=== PATIENT | male | born 1995 | race Caucasian/White ===

== ENCOUNTER 2019-12-15 22:05 | Emergency (ER) | payer OTHER, SELFPAY ==
--- NOTE | ~2019-12-15 | XR_ITS ---
XR chest 2V DATE: 12/15/2019 22:51 INDICATION: Shortness of breath. Dyspnea. Tachycardia. Chest discomfort. TECHNIQUE: PA and lateral views COMPARISON: 02/17/2011 PA chest FINDINGS: Normal heart size. No hilar or mediastinal enlargement. No pulmonary infiltrate or consolid ation, pleural effusion or pulmonary vascular congestion or pneumothorax. IMPRESSION: No active cardiac pulmonary disease Reviewed, dictated and finalized at location A.
--- NOTE | ~2019-12-15 | CT_ITS ---
EXAMINATION: CTA chest PE protocol DATE: 12/15/2019 23:55 INDICATION: Shortness of breath for 3 days. Tachycardia. TECHNIQUE: Computed tomography angiography (CTA) of the chest was performed with 100 mL Omnipaque-350 intravenous contrast timed to evaluate the pulmonary arteries. Coronal maximum intensity projection 3D-reconstructions were created by the technologist. Automated exposure control and iterative reconst ruction technique were employed. Exam dose: 450.67 mGy-cm total exam DLP. COMPARISON: None. FINDINGS: There is suboptimal contrast opacification of the pulmonary arteries. No definite pulmonary embolus is noted. No thoracic aortic aneurysm or dissection. No hilar or mediastinal mass lesion or lymphadenopathy. Normal heart size. No pericardial or pleural effusion. The lungs are clear of infiltrate or consolida tion. IMPRESSION: Suboptimal contrast opacification of the pulmonary arteries; no definite pulmonary embol ism or other significant abnormality Reviewed, dictated and finalized at [facility]. Reviewed, dictated and finalized at location A. IMPRESSION: Suboptimal contrast opacification of the pulmonary arteries; no de finite pulmonary embolism or other significant abnormality
[2019-12-15 22:06] VITALS: BP 131/87; PULSE 126; RESP 18; TEMP 37.6; O2SAT 100
--- NOTE | 2019-12-15 22:17 | ED.SOB ---
HPI - SOB/Dyspnea General Chief Complaint: Shortness of Breath/Dyspnea Stated Complaint: sob x3 days Time Seen by Provider: 12/15/19 22:14 Source: patient and RN notes reviewed Mode of arrival: ambulatory Limitations: no limitations History of Present Illness HPI Narrative: A 24 y/o male presents to the ED with constant SOB for the past 3 days. He states that he feels like he can't take a deep breath or fill his lungs. He reports that he has a dry cough for a couple weeks but that it resolved roughly1 week ago. He notes he there has been a lot of people at his working being dx with the flu lately. He denies any fevers, chills, sore throat, rhinorrhea, nasal congestion, leg pain, leg swelling, N/V/D, or ABD pain. MD elicited complaint: shortness of breath Onset (ago): day(s) (3) Timing: constant Associated symptoms: cough (dry cough for a couple weeks that resolved roughly 1 week ago) Treatment prior to arrival: none Related Data Home Medications Medication Instructions Recorded Confirmed No Home Medications 12/15/19 12/15/19 Allergies Allergy/AdvReac Type Severity Reaction Status Date / Time No Known Allergies Allergy Mild Verified 12/15/19 22:10 Review of Systems Review of Systems: All systems reviewed & are unremarkable except as noted in HPI and below Constitutional: Constitutional: Denies chills and Denies fever(s) ENT: Denies nasal congestion, Denies nasal discharge and Denies sore throat Cardiovascular: Cardiovascular: Denies leg edema Respiratory: Respiratory: Reports cough (dry cough for a couple week but resolved 1 week ago) and Reports dyspnea Gastrointestinal: Gastrointestinal: Denies abdominal pain, Denies diarrhea, Denies nausea and Denies vomiting Musculoskeletal: Musculoskeletal: Denies other (leg pain) PMFSH Past Medical History Medical History (Updated 12/16/19 @ 01:30 by Vale Rae MD) Healthy adult male Surgical History Surgical History (Updated 12/15/19 @ 23:21 by Charles Ramey) No history of previous surgery Social History Social History (Updated 12/15/19 @ 23:21 by Charles Ramey) Smoking status: Never smoker Exam Const: General: cooperative, no acute distress and alert Nutritional Appearance: well nourished Orientation/consciousness: patient oriented x3 Limitations: no limitations HENMT: Mouth: Yes lip normal and Yes moist mucous membranes Resp: Effort & Inspection: normal respiratory effort Auscultation: clear to auscultation bilaterally Cardio: Rate: tachycardic Rhythm: regular rhythm GI: GI Palp: Yes Soft to palpation and No Tenderness to palpation present (GI) Auscultation: normal bowel sounds Skin: General skin exam: normal color Neuro: General: patient oriented x3 Cognition (Neuro): normal cognition Speech: normal speech Extrem: General: normal to inspection, full ROM and no clubbing, cyanosis or edema Psych: Mental Status: mental status grossly normal Affect: normal affect Attitude: cooperative Course Course Emergency Course: Patient presents with report of shortness of breath. Patient notably tachycardic. Chest x-ray unremarkable, thus sent down for CT scan for further evaluation. Patient became very anxious while down in CT scan. CT scan is limited, but no gross evidence of pulmonary embolism. On reevaluation, patient noted to be anxious again very concerned about his test results. Reassured patient that his test results showed no overt abnormalities. Patient reports being under significant amount of stress currently. Discussed with patient his symptoms appear to be due to stress and anxiety, given his appearance on reevaluation. Patient heart rate intermittently excels when he becomes more anxious and becomes more normal when he relaxes. Will refer to on-call primary care physician for further care. Vital Signs Vital signs: Vital Signs Temperature 99.6 F 12/15/19 22:06 Pulse Rate 126 H 12/15/19 22:06 Respiratory Rate 18
[2019-12-15 23:31] VITALS: BP 139/69; PULSE 115; RESP 20; O2SAT 98
[2019-12-15] MEDS: LACTATED RINGERS 1,000 ML 999 ML IV CONT (23:31)
[2019-12-15 23:34] LABS: Basophils Percent Auto 0.5 % (0.2-1.2); Eosinophils Absolute Auto 0.1 K/mm3 (0-0.3); Eosinophils Percent Auto 1.2 % (0-4.4); Hematocrit 42.5 % (42.0-52.0); Hemoglobin 14.8 g/dL (14.0-18.0); Immature Granulocyte Absolute 0.01 K/mm3 (0.00-0.031); Immature Granulocyte Percent A 0.2 % (0-0.5); Lymphocytes Absolute Auto 1.47 K/mm3 (0.9-3.2); Lymphocytes Percent Auto 22.1 % (18.3-44.2); Mean Corpuscular HGB Conc 34.8 g/dl (32-36); Mean Corpuscular Hemoglobin 30.7 pg (26-34); Mean Corpuscular Volume 88.2 fl (80-100); Mean Platelet Volume 10.3 fl (7.4-10.4); Monocytes Absolute Auto 0.8 K/mm3 (0.1-0.6); Monocytes Percent Auto 12.2 % (2.6-8.5); Neutrophils Absolute Auto 4.3 K/mm3 (1.3-6.7); Neutrophils Percent Auto 63.8 % (45.5-73.1); Platelet Count Result 282 k/mm3 (150-375); Red Blood Count 4.82 M/mm3 (4.6-6.20); Red Cell Distribution Width 11.4 % (11.5-14.5); White Blood Count 6.7 K/mm3 (4.5-10.0)
--- NOTE | 2019-12-15 23:38 | ECG_ITS ---
Measurements Intervals [place] Rate: 130 P: 56 [place]: 141 QRS: 61 QRSD: 83 T: 31 QT: 333 QTc: 490 Interpretive Statements SINUS TACHYCARDIA BORDERLINE ST-T WAVE ABNORMALITY- ANTEROLAT/INF LEADS BASELINE ARTIFACT- I, II, III, AVR, AVL ABNORMAL ECG Electronically Signed On 12-16-2019 7:13:54 CDT by Jimmy Hopkins D.O.
[2019-12-15 23:41] LABS: Add Urine Microscopic? YES; Amorphous Sediment Urine Few; Appearance Urine Cloudy (Clear); Bacteria Urine Trace /hpf; Bilirubin Urine Negative (Negative); Blood Urine Negative (Negative); Color Urine Yellow (Yellow); Glucose Urine UA Negative (Negative); Ketones Urine Negative (Negative); Leukocyte Esterase Ur Negative LEU/UL (Negative); Mucus Urine Rare /lpf; Nitrate Urine Negative (Negative); Protein Urine 1+ mg/dL (Negative); RBC Urine 0-2 /hpf (0-2); Specific Grav Ur 1.024 (1.001-1.035); Squamous Epithelial Cell Urine Rare /hpf (Few)
[2019-12-15 23:48] LABS: Lactic Acid Reflex 1.3 mmol/L (0.7-2.1)
[2019-12-15 23:49] LABS: Alanine Aminotransferase 23 U/L (4-50); Albumin Level 4.6 g/dL (3.5-5.1); Alkaline Phosphatase 73 U/L (38-126); Aspartate Amino Transferase 24 U/L (17-59); Bilirubin,Total 0.3 mg/dL (0.2-1.3); Blood Urea Nitrogen 13 mg/dL (9-20); CRP < 0.5 mg/dL (<1.0); Calcium 9.2 mg/dL (8.4-10.2); Carbon Dioxide 29 mmol/L (22-30); Chloride 103 mmol/L (98-107); Estimated CRCL calculation 108 ml/min; Estimated Glomerular Filt Rate > 60; Glucose 87 mg/dL (75-110); Potassium 3.6 mmol/L (3.4-5.0); Sodium 140 mmol/L (137-145)
[2019-12-15 23:49] LABS: Estimated CRCL calculation 99 ml/min; Estimated Glomerular Filt Rate > 60
[2019-12-15 23:54] LABS: Partial Thromboplastin Time 26.4 SECONDS (22.3-36.8); Prothrombin Time 12.4 Seconds (11.1-14.7)
[2019-12-15 23:59] LABS: Magnesium 1.9 mg/dL (1.6-2.3)
[2019-12-16 00:15] VITALS: BP 126/91; PULSE 114; RESP 20; O2SAT 100
[2019-12-16 00:54] VITALS: BP 119/77; PULSE 109; RESP 20; O2SAT 100
[2019-12-16] MEDS: LACTATED RINGERS 1,000 ML 999 ML IV CONT (00:54)
[2019-12-16 01:38] VITALS: BP 119/77; PULSE 98; RESP 20; O2SAT 99
== END 2019-12-16 01:41 | disposition home or self-care (01) ==
PROVIDERS: Emergency Provider Emergency Medicine
DX: F41.9 Anxiety disorder, unspecified (principal); R06.00 Dyspnea, unspecified; R00.0 Tachycardia, unspecified; R94.31 Abnormal electrocardiogram [ECG] [EKG]
CPT/HCPCS: 36415; 71046; 71275; 80053; 81001; 83605; 83735; 84443; 85025; 85610; 85730; 86140; 87040; 87804; 93005; 96360; 96361; 99284; J7120; Q9967

== ENCOUNTER 2020-01-09 10:06 | Outpatient (CLI) | payer OTHER, SELFPAY ==
--- NOTE | ~2020-01-09 | XR_ITS ---
EXAMINATION: XR chest 2V EXAM DATE: 01/09/2020 10:21 INDICATION: Shortness of breath and cough. TECHNIQUE: Frontal and lateral projections of the chest obtained and reviewed. Comparison is made to prior examination from 12/15/2019. FINDINGS: The lungs are clear. There are no pleural effusions. The cardiomediastinal silhouette is within normal limits. There is no pneumothorax suspected. The bones and soft tissues are unremarkab le. IMPRESSION: No acute cardiopulmonary findings. Reviewed, dictated and finalized at location B.
== END 2020-01-09 10:07 | disposition home or self-care (01) ==
LOC: ANHIMG 10:10
PROVIDERS: PCP Family Medicine; Visit Provider Family Medicine
DX: R06.00 Dyspnea, unspecified (principal)
CPT/HCPCS: 71046

== ENCOUNTER 2020-02-06 12:36 | Emergency (ER) | payer OTHER, SELFPAY ==
--- NOTE | ~2020-02-06 | XR_ITS ---
EXAMINATION: XR chest 2V DATE: 02/06/2020 13:03 INDICATION: Midline to left-sided chest pain. TECHNIQUE: PA and lateral views of the chest were obtained. COMPARISON: Chest radiograph dated 01/09/2020 FINDINGS: The lungs remain clear with no focal airspace opacities, pulmonary edema, pleural effusion or pneumot horax. The cardiomediastinal silhouette is normal. Visualized bones and soft tissues are unremarkable . IMPRESSION: 1. Normal chest radiograph. Reviewed, dictated and finalized at location A. IMPRESSION: 1. Normal chest radiograph.
[2020-02-06 12:41] VITALS: BP 128/84; PULSE 138; RESP 17; TEMP 36.6; O2SAT 94
--- NOTE | 2020-02-06 12:54 | ECG_ITS ---
Measurements Intervals [place] Rate: 134 P: 62 [place]: 116 QRS: 68 QRSD: 89 T: -5 QT: 271 QTc: 405 Interpretive Statements SINUS TACHYCARDIA WITH SHORT [place] INTERVAL BORDERLINE R WAVE PROGRESSION, ANTERIOR LEADS NONSPECIFIC ST & T-WAVE ABNORMALITY- INF/LAT LEADS ABNORMAL ECG Electronically Signed On 02-06-2020 12:56:03 CDT by Jimmy Hopkins D.O.
[2020-02-06 13:03] LABS: Basophils Percent Auto 0.4 % (0.2-1.2); Eosinophils Absolute Auto 0.1 K/mm3 (0-0.3); Eosinophils Percent Auto 1.2 % (0-4.4); Hemoglobin 15.6 g/dL (14.0-18.0); Immature Granulocyte Absolute 0.01 K/mm3 (0.00-0.031); Immature Granulocyte Percent A 0.2 % (0-0.5); Lymphocytes Absolute Auto 1.22 K/mm3 (0.9-3.2); Lymphocytes Percent Auto 24.6 % (18.3-44.2); Mean Corpuscular HGB Conc 35.5 g/dl (32-36); Mean Corpuscular Hemoglobin 30.8 pg (26-34); Mean Corpuscular Volume 86.8 fl (80-100); Mean Platelet Volume 9.9 fl (7.4-10.4); Monocytes Absolute Auto 0.6 K/mm3 (0.1-0.6); Monocytes Percent Auto 12.1 % (2.6-8.5); Neutrophils Absolute Auto 3.1 K/mm3 (1.3-6.7); Neutrophils Percent Auto 61.5 % (45.5-73.1); Platelet Count Result 281 k/mm3 (150-375); Red Blood Count 5.07 M/mm3 (4.6-6.20); Red Cell Distribution Width 11.8 % (11.5-14.5)
[2020-02-06 13:13] LABS: Prothrombin Time 13.3 Seconds (11.1-14.7)
[2020-02-06 13:14] LABS: Partial Thromboplastin Time 25.8 SECONDS (22.3-36.8)
--- NOTE | 2020-02-06 13:26 | ED.CHESTPAIN ---
HPI - Chest Pain General Chief Complaint: Chest Pain Stated Complaint: gnarly heart pains Time Seen by Provider: 02/06/20 13:16 History of Present Illness HPI narrative: Sharp substernal chest pain for the past 3 days. Continuos. No exacerbating or alleviating factors. He has never had this type of pain before. Related Data Allergies Allergy/AdvReac Type Severity Reaction Status Date / Time No Known Allergies Allergy Mild Verified 02/06/20 12:55 Review of Systems Review of Systems: All systems reviewed & are unremarkable except as noted in HPI and below PMFSH Past Medical History Medical History Healthy adult male Surgical History Surgical History No history of previous surgery Family History Family History Mother Diabetes mellitus Social History Social History Smoking status: Never smoker Gender identity (if verbalized by the patient): Male Exam Const: General: healthy appearing, no acute distress and alert Orientation/consciousness: patient oriented x3 HENMT: Head: normal to inspection Neck: Neck: normal visual inspection and no lymphadenopathy Chest: Chest palpation & inspection: no tenderness Resp: Effort & Inspection: normal respiratory effort Auscultation: clear to auscultation bilaterally, no rales, no rhonchi and no wheezes Cardio: Jugular venous distension: no JVD Rate: regular rate Rhythm: regular rhythm Heart sounds: no murmurs GI: Inspection: non-distended GI Palp: Yes Soft to palpation and No Tenderness to palpation present (GI) Skin: General skin exam: normal color Neuro: General: patient oriented x3 and moves all extremities Speech: normal speech Extrem: General: no edema Psych: Appearance: well kempt Mental Status: mental status grossly normal Affect: Anxious affect present Attitude: cooperative Course Vital Signs Vital signs: Vital Signs Temperature 36.6 C 02/06/20 12:41 Pulse Rate 138 H 02/06/20 12:41 Respiratory Rate 17 02/06/20 12:41 Blood Pressure 128/84 02/06/20 12:41 Pulse Oximetry 94 02/06/20 12:41 Temperature 36.7 C 02/06/20 16:48 Pulse Rate 104 H 02/06/20 16:48 Respiratory Rate 20 02/06/20 16:48 Blood Pressure 121/83 02/06/20 16:48 Pulse Oximetry 98 02/06/20 16:48 MDM - Chest Pain MDM Narrative Medical decision making narrative: Low risk for serious causes of chest pain. Evaluation unremarkable. Appropriate for discharge at this time. Medical Records Data Attestation: I reviewed the patient's medical records. Lab Data Attestation: I reviewed the patient's lab results. Result diagrams: 02/06/20 12:57 02/06/20 12:57 Labs: Lab Results 02/06/20 02/06/20 02/06/20 Range/Units 12:57 12:57 12:57 WBC 5.0 (4.5-10.0) K/mm3 RBC 5.07 (4.6-6.20) M/mm3 Hgb 15.6 (14.0-18.0) g/dL Hct 44.0 (42.0-52.0) % MCV 86.8 (80-100) fl MCH 30.8 (26-34) pg MCHC 35.5 (32-36) g/dl RDW 11.8 (11.5-14.5) % Plt Count 281 (150-375) k/mm3 MPV 9.9 (7.4-10.4) fl Immature Gran % (Auto) 0.2 (0-0.5) % Neut % (Auto) 61.5 (45.5-73.1) % Lymph % (Auto) 24.6 (18.3-44.2) % Wirt % (Auto) 12.1 H (2.6-8.5) % Eos % (Auto) 1.2 (0-4.4) % Baso % (Auto) 0.4 (0.2-1.2) % Lymph # (Auto) 1.22 (0.9-3.2) K/mm3 Wirt # (Auto) 0.6 (0.1-0.6) K/mm3 Eos # (Auto) 0.1 (0-0.3) K/mm3 Baso # (Auto) 0.0 (0.0-0.1) K/mm3 Abs Immat Gran (auto) 0.01 (0.00-0.031) K/mm3 Absolute Neuts (auto) 3.1 (1.3-6.7) K/mm3 Absolute Nucleated RBC 0.0 (0.0-0.012) K/mm3 Nucleated RBC % 0.0 (0.0-0.2) % PT 13.3 (11.1-14.7) Seconds INR 1.0 APTT 25.8 (22.3-36.8) SECONDS D-Dimer (<0.48) ug/mL Sodium 138
[2020-02-06 13:29] LABS: Blood Urea Nitrogen 16 mg/dL (9-20); Calcium 9.7 mg/dL (8.4-10.2); Carbon Dioxide 28 mmol/L (22-30); Chloride 103 mmol/L (98-107); Estimated CRCL calculation 99 ml/min; Estimated Glomerular Filt Rate > 60; Glucose 95 mg/dL (75-110); Potassium 4.2 mmol/L (3.4-5.0); Sodium 138 mmol/L (137-145); Troponin I < 0.012 ng/mL (0.000-0.034)
[2020-02-06 13:41] VITALS: BP 135/81; PULSE 112; RESP 16; TEMP 37.2; O2SAT 97
[2020-02-06 15:00] VITALS: BP 120/69; PULSE 115; RESP 19; TEMP 37.3; O2SAT 98
[2020-02-06] MEDS: SODIUM CHLORIDE 0.9% IV 1,000 ML 999 ML IV CONT (15:00)
[2020-02-06 16:07] LABS: D Dimer 0.27 ug/mL (<0.48)
[2020-02-06 16:19] LABS: Troponin I < 0.012 ng/mL (0.000-0.034)
[2020-02-06 16:48] VITALS: BP 121/83; PULSE 104; RESP 20; TEMP 36.7; O2SAT 98
== END 2020-02-06 16:59 | disposition home or self-care (01) ==
PROVIDERS: Emergency Provider Emergency Medicine; PCP Family Medicine
DX: R07.89 Other chest pain (principal); R00.0 Tachycardia, unspecified; R94.31 Abnormal electrocardiogram [ECG] [EKG]
CPT/HCPCS: 36415; 71046; 80048; 84484; 85025; 85380; 85610; 85730; 93005; 96360; 99284; J7030

== ENCOUNTER 2020-03-27 08:02 | Outpatient (CLI) | payer OTHER, SELFPAY ==
--- NOTE | 2020-03-30 15:44 | P.PCNHOL_ITS ---
Holter/Event Monitor Holter/Event Monitor Date of procedure: 03/27/20 Procedure Type: 24 hour holter monitor Indications: Palpitations Conclusion: 1. 24 hour holter monitor on 03/27/20. 2. Underlying rhythm is sinus rhythm. HR range 43-156 bpm; average HR 84 bpm. 3. There are 11 premature supraventricular complexes. No supraventricular tachycardia. 4. There is one premature ventricular complex. No ventricular tachycardia. 5. No sinoatrial or atrioventricular blocks. No significant pauses greater than 2 seconds. 6. Patient reports symptoms of shortness of breath, heartburn, flutter which d emonstrate sinus rhythm, HR range 74-107 bpm.
== END 2020-03-27 08:03 | disposition home or self-care (01) ==
PROVIDERS: PCP Family Medicine; Visit Provider Family Medicine
DX: R00.2 Palpitations (principal)
CPT/HCPCS: 93225; 93226

== ENCOUNTER 2020-08-08 12:41 | Emergency (ER) | payer OTHER, SELFPAY ==
--- NOTE | ~2020-08-08 | XR_ITS ---
EXAMINATION: XR chest 2V DATE: 08/08/2020 13:38 INDICATION: Anterior left-sided chest pain TECHNIQUE: Frontal and lateral views of the chest are obtained COMPARISON: 02/06/2020 FINDINGS: The lungs are free of acute opacities. There is no pleural effusion or pneumothorax. The ca rdiomediastinal silhouette is normal. The visualized bones and soft tissues are unremarkable. IMPRESSION: 1. No acute cardiopulmonary abnormality. Reviewed, dictated and finalized at location A. N FARMER
--- NOTE | 2020-08-08 12:50 | ECG_ITS ---
Measurements Intervals [place] Rate: 107 P: 72 [place]: 125 QRS: 76 QRSD: 90 T: 18 QT: 312 QTc: 418 Interpretive Statements SINUS TACHYCARDIA NONSPECIFIC T-WAVE ABNORMALITY- INFERIOR LEADS BASELINE WANDER- I, III ABNORMAL ECG Electronically Signed On 08-08-2020 16:07:27 TEAM ASSEMBLY LINE MACHINE OPERATOR by Jimmy Hopkins D.O.
[2020-08-08 12:55] VITALS: BP 136/60; PULSE 115; RESP 20; TEMP 36.8; O2SAT 97
[2020-08-08 13:08] LABS: Basophils Percent Auto 0.4 % (0.2-1.2); Eosinophils Percent Auto 0.4 % (0-4.4); Hemoglobin 15.1 g/dL (14.0-18.0); Immature Granulocyte Absolute 0.03 K/mm3 (0.00-0.031); Immature Granulocyte Percent A 0.4 % (0-0.5); Lymphocytes Absolute Auto 0.94 K/mm3 (0.9-3.2); Lymphocytes Percent Auto 11.7 % (18.3-44.2); Mean Corpuscular HGB Conc 35.1 g/dl (32-36); Mean Corpuscular Hemoglobin 30.5 pg (26-34); Mean Corpuscular Volume 86.9 fl (80-100); Mean Platelet Volume 9.8 fl (7.4-10.4); Monocytes Absolute Auto 0.6 K/mm3 (0.1-0.6); Monocytes Percent Auto 7.3 % (2.6-8.5); Neutrophils Absolute Auto 6.4 K/mm3 (1.3-6.7); Neutrophils Percent Auto 79.8 % (45.5-73.1); Platelet Count Result 300 k/mm3 (150-375); Red Blood Count 4.95 M/mm3 (4.6-6.20); Red Cell Distribution Width 11.5 % (11.5-14.5); White Blood Count 8.1 K/mm3 (4.5-10.0)
[2020-08-08 13:21] LABS: Prothrombin Time 13.3 Seconds (11.1-14.7)
[2020-08-08 13:22] LABS: Anion Gap 11 mmol/L (8-16); Blood Urea Nitrogen 14 mg/dL (9-20); Calcium 9.4 mg/dL (8.4-10.2); Carbon Dioxide 26 mmol/L (22-30); Chloride 103 mmol/L (98-107); Estimated CRCL calculation 110 ml/min; Estimated Glomerular Filt Rate > 60; Glucose 97 mg/dL (75-110); Partial Thromboplastin Time 24.1 SECONDS (22.3-36.8); Sodium 140 mmol/L (137-145)
[2020-08-08 13:34] LABS: Troponin I < 0.012 ng/mL (0.000-0.034)
--- NOTE | 2020-08-08 14:16 | PC.NURSE ---
called Emilia sharif(?), added on D Dimer
[2020-08-08] MEDS: KETOROLAC 30 MG/ML VIAL (*BKC) IV PUSH (14:50)
[2020-08-08 14:51] VITALS: BP 129/82; PULSE 89; PULSE 92; RESP 16; O2SAT 98
[2020-08-08 15:05] LABS: D Dimer 0.27 ug/mL (<0.48)
--- NOTE | 2020-08-08 15:54 | ED.GENADULT ---
HPI - General Adult General Chief complaint: Chest Pain Stated complaint: chest pain Time Seen by Provider: 08/08/20 14:03 History of Present Illness HPI narrative: Patient is a 25-year-old male who presents ER with left-sided chest pain. Reports it feels like his heart is cramping. He has had this intermittently and has been seen by cardiology for. He has had a negative work-up including a Holter monitor as well as a CTA to rule out PE. Patient reports usually last 5 minutes at a time but this was been lasting a couple of hours. He was dirt biking today and the pain came on. Is worse with some movement. Also worse with deep breath. No runny nose/sore throat/productive cough. He is without fevers or chills. Related Data Allergies Allergy/AdvReac Type Severity Reaction Status Date / Time No Known Allergies Allergy Mild Verified 08/08/20 12:58 Review of Systems Review of Systems: All systems reviewed & are unremarkable except as noted in HPI and below Constitutional: Constitutional: Denies chills and Denies fever(s) Cardiovascular: Cardiovascular: Reports chest pain, Denies rapid heart rate and Denies radiating jaw, neck or arm pain Respiratory: Respiratory: Denies cough, Denies dyspnea and Denies wheezing Comments: Pain with deep breath Gastrointestinal: Gastrointestinal: Denies abdominal pain, Denies nausea and Denies vomiting PMFSH Past Medical History Medical History (Updated 08/08/20 @ 16:02 by Sanjay Camarillo MD) Healthy adult male Surgical History Surgical History No history of previous surgery Family History Family History Mother Diabetes mellitus Social History Social History Smoking status: Never smoker Gender identity (if verbalized by the patient): Male Exam Narrative: Exam Narrative: GENERAL: Well-appearing, well-nourished, and in no acute distress. HEAD: Normocephalic, atraumatic. CHEST: Clear to auscultation. No respiratory distress. HEART: Regular rate and rhythm. No murmur heard. Normal peripheral pulses. ABDOMEN: Soft, nontender, nondistended. EXTREMITIES: Normal range of motion. No edema. NEURO: Alert and oriented x3. PSYCH: Normal mood and affect. Course Course Emergency Course: And resolved with Toradol. Unremarkable evaluation. Discharge home. Educated about musculoskeletal chest pain. Recommend anti-inflammatories muscle relaxers when pain occurs. Vital Signs Vital signs: Vital Signs Temperature 98.3 F 08/08/20 12:55 Pulse Rate 115 H 08/08/20 12:55 Respiratory Rate 20 08/08/20 12:55 Blood Pressure 136/60 08/08/20 12:55 Pulse Oximetry 97 08/08/20 12:55 Temperature 98.3 F 08/08/20 12:55 Pulse Rate 92 08/08/20 14:51 Respiratory Rate 16 08/08/20 14:51 Blood Pressure 129/82 08/08/20 14:51 Pulse Oximetry 98 08/08/20 14:51 Medical Decision Making Vital Signs Vital Signs: Vital Signs Temperature 98.3 F 08/08/20 12:55 Pulse Rate 115 H 08/08/20 12:55 Respiratory Rate 20 08/08/20 12:55 Blood Pressure 136/60 08/08/20 12:55 Pulse Oximetry 97 08/08/20 12:55 Temperature 98.3 F 08/08/20 12:55 Pulse Rate 92 08/08/20 14:51 Respiratory Rate 16 08/08/20 14:51 Blood Pressure 129/82 08/08/20 14:51 Pulse Oximetry 98 08/08/20 14:51 Lab Data Result diagrams: 08/08/20 12:54 08/08/20 12:54 Labs: Lab Results 08/08/20 08/08/20 08/08/20 Range/Units 12:54 12:54 12:54 WBC 8.1 (4.5-10.0) K/mm3 RBC 4.95 (4.6-6.20) M/mm3 Hgb 15.1 (14.0-18.0) g/dL Hct 43.0 (42.0-52.0) % MCV 86.9 (80-100) fl MCH 30.5 (26-34) pg MCHC 35.1 (32-36) g/dl RDW 11.5 (11.5-14.5) % Plt Count 300 (150-375) k/mm3 MPV 9.8 (7.4-10.4) fl Immature Gran % (Auto) 0.4 (0-0.5)
[2020-08-08 16:17] LABS: Troponin I < 0.012 ng/mL (0.000-0.034)
[2020-08-08 16:26] VITALS: BP 117/78; PULSE 86; RESP 18; O2SAT 100
== END 2020-08-08 16:18 | disposition home or self-care (01) ==
PROVIDERS: Emergency Provider Emergency Medicine; PCP Family Medicine
DX: R07.89 Other chest pain (principal); R00.0 Tachycardia, unspecified; R94.31 Abnormal electrocardiogram [ECG] [EKG]
CPT/HCPCS: 36415; 71046; 80048; 84484; 85025; 85380; 85610; 85730; 93005; 96374; 99284; J1885

== ENCOUNTER → 2021-02-20 06:27 | Outpatient (CLI) | payer OTHER, SELFPAY ==
[2021-02-22 18:36] LABS: SARS-CoV-2 RNA PCR Negative
== END ==
PROVIDERS: PCP Family Medicine; Visit Provider Family Medicine
DX: R19.7 Diarrhea, unspecified (principal); Z20.822 Contact with and (suspected) exposure to COVID-19
CPT/HCPCS: C9803; U0003; U0005

== ENCOUNTER 2021-04-25 11:42 | Emergency (ER) | payer OTHER, SELFPAY ==
[2021-04-25 11:44] VITALS: BP 139/69; PULSE 86; RESP 14; TEMP 36.4; O2SAT 98
[2021-04-25 12:04] LABS: Basophils Percent Auto 0.4 % (0.2-1.2); Eosinophils Absolute Auto 0.1 K/mm3 (0-0.3); Eosinophils Percent Auto 1.9 % (0-4.4); Hematocrit 45.7 % (42.0-52.0); Hemoglobin 15.5 g/dL (14.0-18.0); Immature Granulocyte Absolute 0.01 K/mm3 (0.00-0.031); Immature Granulocyte Percent A 0.2 % (0-0.5); Lymphocytes Percent Auto 26.2 % (18.3-44.2); Mean Corpuscular HGB Conc 33.9 g/dl (32-36); Mean Corpuscular Hemoglobin 30.2 pg (26-34); Mean Corpuscular Volume 88.9 fl (80-100); Mean Platelet Volume 9.9 fl (7.4-10.4); Monocytes Absolute Auto 0.6 K/mm3 (0.1-0.6); Monocytes Percent Auto 10.7 % (2.6-8.5); Neutrophils Absolute Auto 3.3 K/mm3 (1.3-6.7); Neutrophils Percent Auto 60.6 % (45.5-73.1); Platelet Count Result 290 k/mm3 (150-375); Red Blood Count 5.14 M/mm3 (4.6-6.20); Red Cell Distribution Width 11.7 % (11.5-14.5); White Blood Count 5.4 K/mm3 (4.5-10.0)
[2021-04-25 12:18] LABS: INR 0.9; Partial Thromboplastin Time 25.8 SECONDS (22.3-36.8)
[2021-04-25 12:19] LABS: Alanine Aminotransferase 56 U/L (4-50); Albumin Level 4.8 g/dL (3.5-5.1); Alkaline Phosphatase 57 U/L (38-126); Anion Gap 9 mmol/L (8-16); Aspartate Amino Transferase 46 U/L (17-59); Bilirubin,Total 0.7 mg/dL (0.2-1.3); Blood Urea Nitrogen 9 mg/dL (9-20); Calcium 9.6 mg/dL (8.4-10.2); Carbon Dioxide 24 mmol/L (22-30); Chloride 105 mmol/L (98-107); Estimated CRCL calculation 117 ml/min; Estimated Glomerular Filt Rate > 60; Glucose 104 mg/dL (65-110); Sodium 138 mmol/L (137-145)
[2021-04-25 14:04] VITALS: BP 121/66; PULSE 87; RESP 20; TEMP 37.1; O2SAT 100
[2021-04-25 14:30] VITALS: BP 135/90; PULSE 80; RESP 16; O2SAT 99
--- NOTE | 2021-04-25 15:28 | ED.GIBLEED ---
HPI - GI Bleed General Chief complaint: GI Bleed Stated complaint: blood in stool Time Seen by Provider: 04/25/21 15:15 Source: patient Mode of arrival: ambulatory Limitations: no limitations History of Present Illness HPI Narrative: Patient is 26 years old white male presented to the ED with possible rectal bleeding. Patient reported having a bowel movement this morning and noticed fresh red bright blood on it. Patient denies having similar symptoms,, fever, chills, nausea, vomiting, abdominal pain, diarrhea, constipation, anal or rectal pain. Patient does not take medicine at home, does not drink or smoke or uses drugs. Patient does not take blood thinner. Related Data Allergies Allergy/AdvReac Type Severity Reaction Status Date / Time No Known Allergies Allergy Mild Verified 04/25/21 11:43 Review of Systems Review of Systems: Narrative: CONSTITUTIONAL: Denies fever, chills, or sweats. EYES: Denies visual changes, redness, or discharge. ENT: Denies rhinorrhea, congestion, sore throat, or otalgia. CARDIOVASCULAR: Denies chest pain, palpitations, or edema. RESPIRATORY: Denies cough or dyspnea. GASTROINTESTINAL: Denies abdominal pain, nausea, vomiting, or diarrhea. GENITOURINARY: Denies dysuria or hematuria. SKIN: Denies rash or itching. MUSCULOSKELETAL: Denies back pain, joint pain, or myalgia. NEUROLOGIC: Denies headache, numbness, or weakness. PSYCHIATRIC: Denies anxiety or depression. PMFSH Past Medical History Medical History (Updated 04/25/21 @ 15:35 by Antony Mcneal MD) Healthy adult male Surgical History Surgical History No history of previous surgery Family History Family History Mother Diabetes mellitus Social History Social History Smoking status: Never smoker Second hand tobacco smoke exposure: Yes Alcohol intake: never Substance use: former Substance use type: marijuana Gender identity (if verbalized by the patient): Male Spiritual care concerns: No Agree to blood products: Yes Exam Narrative: Exam Narrative: General appearance: Well-developed, well-nourished Skin: Normal color Head: Normocephalic, nontraumatic Eyes: Clear conjunctiva ENT: Oropharynx normal, ears normal, nose normal Neck: Supple, nontender Chest and respiratory: Airway patent, no respiratory distress, no accessory muscle use Heart: Regular rate/rhythm Abdomen: Soft, nontender, no organomegaly, quiet bowel sounds, guaiac stool is negative, rectal exam showed no hemorrhoids, no mass, no tenderness Vascular: Normal peripheral pulses, normal capillary refill. Musculoskeletal: Normal range of motion, nontender back Neurologic: Alert and oriented ?3, PHARMACY INFORMATICIST is normal as tested, no gross motor deficit Course Course Emergency Course: Stable Vital Signs Vital signs: Vital Signs Temperature 36.4 C 04/25/21 11:44 Pulse Rate 86 04/25/21 11:44 Respiratory Rate 14 04/25/21 11:44 Blood Pressure 139/69 04/25/21 11:44 Pulse Oximetry 98 04/25/21 11:44 Temperature 37.1 C 04/25/21 14:04 Pulse Rate 80 04/25/21 14:30 Respiratory Rate 16 04/25/21 14:30 Blood Pressure 135/90 04/25/21 14:30 Pulse Oximetry 99 04/25/21 14:30 MDM - GI Bleed MDM Narrative Medical decision making narrative: Rectal bleeding, Physical exam showed no blood in the rectal pouch, guaiac is negative. Blood work-up showed normal hemoglobin and hematocrit. Differential Diagnosis Differential diagnosis: Likely hemorrhoids, Lower gastrointestinal hemorrhage, anal fissure and other (Hemorrh
[2021-04-25 15:29] VITALS: BP 120/78; PULSE 100; RESP 16; O2SAT 99
== END 2021-04-25 15:59 | disposition home or self-care (01) ==
PROVIDERS: Emergency Medicine; Emergency Provider Emergency Medicine; PCP Family Medicine
DX: K62.5 Hemorrhage of anus and rectum (principal)
CPT/HCPCS: 36415; 80053; 85025; 85610; 85730; 86850; 86900; 86901; 99283

== ENCOUNTER 2023-05-27 05:18 | Emergency (ER) | payer OTHER, SELFPAY ==
[2023-05-27 05:21] VITALS: BP 146/82; PULSE 102; RESP 16; TEMP 37.1; O2SAT 99
[2023-05-27] MEDS: SODIUM CHLORIDE 0.9% IV 2,000 ML 999 ML IV CONT (05:32)
[2023-05-27] MEDS: ONDANSETRON INJ 4 MG/2 ML VIAL IV PUSH (05:32)
[2023-05-27 05:39] LABS: Basophils Percent Auto 0.4 % (0.2-1.2); Eosinophils Absolute Auto 0.2 K/mm3 (0-0.3); Eosinophils Percent Auto 2.6 % (0-4.4); Hematocrit 45.2 % (42.0-52.0); Hemoglobin 15.9 g/dL (14.0-18.0); Immature Granulocyte Absolute 0.02 K/mm3 (0.00-0.031); Immature Granulocyte Percent A 0.3 % (0-0.5); Lymphocytes Absolute Auto 1.34 K/mm3 (0.9-3.2); Lymphocytes Percent Auto 19.5 % (18.3-44.2); Mean Corpuscular HGB Conc 35.2 g/dl (32-36); Mean Corpuscular Hemoglobin 31.3 pg (26-34); Mean Platelet Volume 9.7 fl (7.4-10.4); Monocytes Absolute Auto 0.9 K/mm3 (0.1-0.6); Monocytes Percent Auto 12.8 % (2.6-8.5); Neutrophils Absolute Auto 4.4 K/mm3 (1.3-6.7); Neutrophils Percent Auto 64.4 % (45.5-73.1); Platelet Count Result 306 k/mm3 (150-375); Red Blood Count 5.08 M/mm3 (4.6-6.20); Red Cell Distribution Width 11.9 % (11.5-14.5); White Blood Count 6.9 K/mm3 (4.5-10.0)
[2023-05-27 05:57] LABS: Alanine Aminotransferase 141 U/L (6-50); Albumin Level 4.6 g/dL (3.5-5.1); Alkaline Phosphatase 63 U/L (38-126); Anion Gap 5 mmol/L (8-16); Aspartate Amino Transferase 59 U/L (17-59); Bilirubin,Total 0.7 mg/dL (0.2-1.3); Blood Urea Nitrogen 12 mg/dL (9-20); Calcium 9.4 mg/dL (8.4-10.2); Carbon Dioxide 28 mmol/L (22-30); Chloride 104 mmol/L (98-107); Estimated CRCL calculation 113 ml/min; Estimated Glomerular Filt Rate > 60; Glucose 102 mg/dL (65-110); Lipase 51 U/L (23-300); Potassium 3.7 mmol/L (3.4-5.0); Sodium 137 mmol/L (137-145)
--- NOTE | 2023-05-27 06:12 | ED.GENADULT ---
HPI - General Adult General Chief complaint: Nausea/Vomiting/Diarrhea <Dean Mccord MD - Last Filed: 06/05/23 11:56> Stated complaint: diarrhea x6 days <Dean Mccord MD - Last Filed: 06/05/23 11:56> Time Seen by Provider: 05/27/23 05:23 <Dean Mccord MD - Last Filed: 06/05/23 11:56> History of Present Illness HPI narrative: 28-year-old male presented the emergency department for evaluation of 6 days of foul-smelling diarrhea. Patient states he was [place] in the [place] and then that evening started developing some diarrhea. Patient states that the diarrhea has persisted. Patient reports he does have some abdominal cramping with the diarrhea but denies any current abdominal pain. Patient denies any associated nausea or vomiting. <Dean Mccord MD - Last Filed: 06/05/23 11:56> Related Data Allergies/adverse reactions: Allergies Allergy/AdvReac Type Severity Reaction Status Date / Time No Known Allergies Allergy Mild Verified 06/02/23 11:38 <Dean Mccord MD - Last Filed: 06/05/23 11:56> Review of Systems Review of Systems: All systems reviewed & are unremarkable except as noted in HPI and below <Dean Mccord MD - Last Filed: 06/05/23 11:56> PMFSH Past Medical History Medical History: Medical History ) Healthy adult male <Dean Mccord MD - Last Filed: 06/05/23 11:56> Surgical History Surgical History: Surgical History ) No history of previous surgery <Dean Mccord MD - Last Filed: 06/05/23 11:56> Family History Family History: Family History ) Mother Diabetes mellitus <Dean Mccord MD - Last Filed: 06/05/23 11:56> Social History Social History: Social History ) Smoking status: Never smoker Second hand tobacco smoke exposure: Yes Alcohol intake: never Substance use: former Substance use type: marijuana Living arrangements: with family Occupation/Education: occupation Gender identity (if verbalized by the patient): Male Spiritual care concerns: No Agree to blood products: Yes <Dean Mccord MD - Last Filed: 06/05/23 11:56> Exam Narrative: APPEARANCE: Well appearing, no pain, no distress, well-nourished. HEAD: normocephalic, atraumatic. EYES: PERRLA/EOMI, conjunctivae clear. NOSE: Normal no drainage NECK: Supple. No adenopathy, no masses. RESPIRATORY: Airway patent, respirations nonlabored. Clear to auscultation bilaterally, no rales, rhonchi, wheezing. CARDIOVASCULAR: Regular rate and rhythm without murmurs rubs or gallops. ABDOMINAL: Soft, nontender, nondistended, normal bowel sounds MUSCULOSKELETAL: Moves all extremities. Strength/ROM intact, No edema, No calf tenderness. NEURO: Alert. Cranial nerves II through XII intact. SKIN: Warm, dry. Normal Color <Dean Mccord MD - Last Filed: 06/05/23 11:56> Course Course Emergency Course: 28-year-old male present emergency department for evaluation of diarrhea. Patient was treated with 2 L of normal saline. Patient is afebrile with no leukocytosis and a stable hemoglobin. Patient has no significant electrolyte abnormalities. Patient's lipase was not elevated. At time of signout patient's status is pending. <Dean Mccord MD - Last Filed: 06/05/23 11:56> Reevaluation(s) Reevaluation #1: Patient care turned over to me by Dr. Mccord at shift change, awaiting C. difficile resolved, disposition. C. difficile came back negative. Patient will be discharged on Imodium as needed and to encourage fluid intake. Currently patient feeling okay, ready to go home. <Antony Mcneal MD - Last Filed: 05/27/23 09:18> Date: 05/27/23 <Antony Mcneal MD - Last Filed: 05/27/23 09:18> Time: 09:17 <Antony Mcneal
[2023-05-27 06:15] LABS: Atypical Lymphocytes Present; Schistocytes None Seen (NORMAL)
[2023-05-27 06:16] LABS: Platelet Estimate Adequate (Adequate)
[2023-05-27 06:31] VITALS: BP 128/76; PULSE 98; RESP 15; O2SAT 100
[2023-05-27 07:32] VITALS: BP 146/87; PULSE 106; RESP 18; O2SAT 97
[2023-05-27 08:23] LABS: Toxigenic C. Diff NEGATIVE (NEGATIVE)
[2023-05-27 09:10] VITALS: BP 143/87; PULSE 87; RESP 18; O2SAT 98
== END 2023-05-27 09:54 | disposition home or self-care (01) ==
PROVIDERS: Emergency Medicine; Emergency Provider Emergency Medicine
DX: R19.7 Diarrhea, unspecified (principal)
CPT/HCPCS: 36415; 80053; 83690; 85025; 87045; 87177; 87209; 87269; 87272; 87427; 87449; 87493; 89055; 96361; 96374; 99284; J2405; J7030

== ENCOUNTER 2023-10-27 03:59 | Emergency (ER) | payer OTHER, SELFPAY ==
[2023-10-27] VITALS (13 sets, daily range): BP systolic 111–135; BP diastolic 58–83; PULSE 60–87; RESP 15–18; TEMP 37.1; O2SAT 97–99
--- NOTE | ~2023-10-27 | CT_ITS ---
Non-contrast CT scan of the Abdomen and Pelvis Clinical indication: Flank pain Technique: 2.5 mm axial scans were obtained through the abdomen and pelvis without intravenous or or al contrast. Dose reduction technique was used on this scan by utilizing automated exposure control a nd iterative reconstruction technique. The dose-length product (DLP) was 232.56 mGy-cm. Findings: Images through the lung bases reveal no abnormalities. There is no evidence of renal or ureteral calculi. The kidneys and the ureters are nondilated. The liver, spleen, pancreas, gallbladder, and adrenals appear normal. There is no aortic aneurysm. There is no evidence of bowel obstruction. Normal appendix. Images through the pelvis were performed. There is no evidence of ascites or lymphadenopathy. There i s a 2 mm urinary bladder stone. Prostate gland mildly prominent. Impression: 2 mm urinary bladder stone, possibly recently passed. No renal or ureteral stones seen currently. No hydronephrosis. Reviewed, dictated and finalized at [facility]. PRESSER Impression: 2 mm urinary bladder stone, possibly recently passed. No renal or ureteral stones seen currently. No hydronephrosis.
[2023-10-27] MEDS: SODIUM CHLORIDE 0.9% IV 1,000 ML 999 ML IV CONT ×2 (04:25→06:01)
[2023-10-27] MEDS: ONDANSETRON INJ 4 MG/2 ML VIAL IV PUSH (04:25)
[2023-10-27] MEDS: MORPHINE SULFATE (*CRX) 4 MG/ML INJ IV PUSH (04:26)
[2023-10-27 04:36] LABS: Basophils Percent Auto 0.4 % (0.2-1.2); Eosinophils Absolute Auto 0.1 K/mm3 (0-0.3); Eosinophils Percent Auto 1.1 % (0-4.4); Hematocrit 44.9 % (42.0-52.0); Hemoglobin 14.9 g/dL (14.0-18.0); Immature Granulocyte Absolute 0.02 K/mm3 (0.00-0.031); Immature Granulocyte Percent A 0.3 % (0-0.5); Lymphocytes Absolute Auto 2.62 K/mm3 (0.9-3.2); Lymphocytes Percent Auto 33.2 % (18.3-44.2); Mean Corpuscular HGB Conc 33.2 g/dl (32-36); Mean Corpuscular Hemoglobin 30.7 pg (26-34); Mean Corpuscular Volume 92.6 fl (80-100); Mean Platelet Volume 10.1 fl (7.4-10.4); Monocytes Absolute Auto 0.8 K/mm3 (0.1-0.6); Neutrophils Absolute Auto 4.4 K/mm3 (1.3-6.7); Platelet Count Result 304 k/mm3 (150-375); Red Blood Count 4.85 M/mm3 (4.6-6.20); White Blood Count 7.9 K/mm3 (4.5-10.0)
[2023-10-27 04:46] LABS: Alanine Aminotransferase 36 U/L (6-50); Albumin Level 4.6 g/dL (3.5-5.1); Alkaline Phosphatase 66 U/L (38-126); Anion Gap 11 mmol/L (8-16); Aspartate Amino Transferase 27 U/L (17-59); Bilirubin,Total 0.9 mg/dL (0.2-1.3); Blood Urea Nitrogen 18 mg/dL (9-20); Calcium 9.5 mg/dL (8.4-10.2); Carbon Dioxide 25 mmol/L (22-30); Chloride 104 mmol/L (98-107); Estimated CRCL calculation 104 ml/min; Estimated Glomerular Filt Rate > 60; Glucose 114 mg/dL (65-110); Lipase 43 U/L (23-300); Potassium 3.5 mmol/L (3.4-5.0); Sodium 140 mmol/L (137-145)
--- NOTE | 2023-10-27 05:00 | ED.GENADULT ---
HPI - General Adult General Chief complaint: Back Pain/Injury Stated complaint: Flank pain Time Seen by Provider: 10/27/23 04:11 History of Present Illness HPI narrative: Patient is a 28-year-old gentleman who presents emergency department with chief complaint of left flank pain around to the front and down to the urethra. Patient reports the pain started about 30 minutes prior to arrival reports he is unable to get comfortable in any position patient reports that he feels sweaty patient reports never had an episode like this before in the past patient reports also that whenever he tries to urinate and feels as though he can not urinate. Related Data Allergies Allergy/AdvReac Type Severity Reaction Status Date / Time No Known Allergies Allergy Mild Verified 06/02/23 11:38 Review of Systems Review of Systems: A 10 system review of systems was completed on the patient and is negative except for what is stated in the HPI. Nursing and ancillary documentation was reviewed. [facility], [facility] Past Medical History Medical History (Updated 10/27/23 @ 06:24 by Antonio Miller MD) Healthy adult male Surgical History Surgical History No history of previous surgery Family History Family History Mother Diabetes mellitus Social History Social History Smoking status: Never smoker Second hand tobacco smoke exposure: Yes Alcohol intake: never Substance use: former Substance use type: marijuana Living arrangements: with family Occupation/Education: occupation Gender identity (if verbalized by the patient): Male Spiritual care concerns: No Agree to blood products: Yes Exam Narrative: GENERAL: Well-appearing, well-nourished, and in acute pain distress. HEAD: Normocephalic, atraumatic. EYES: PERRLA and EOMI. ENT: Nares clear, no rhinorrhea or epistaxis. Mucous membranes moist. NECK: Supple. CHEST: Clear to auscultation. No respiratory distress. HEART: Regular rate and rhythm. No murmur heard. Normal peripheral pulses. ABDOMEN: Soft, nontender, nondistended, normal active bowel sounds. EXTREMITIES: Normal range of motion. No edema. SKIN: Warm, dry, no rash. NEURO: No focal deficits. Alert and oriented x3. PSYCH: Normal mood and affect. Course Vital Signs Vital signs: Vital Signs Temperature 37.1 C 10/27/23 04:00 Pulse Rate 87 10/27/23 04:00 Respiratory Rate 18 10/27/23 04:00 Blood Pressure 111/83 10/27/23 04:00 Pulse Oximetry 99 10/27/23 04:00 Oxygen Delivery Room Air 10/27/23 04:00 Temperature 37.1 C 10/27/23 04:00 Pulse Rate 64 10/27/23 06:46 Respiratory Rate 16 10/27/23 06:46 Blood Pressure 133/65 10/27/23 06:46 Pulse Oximetry 98 10/27/23 06:46 Oxygen Delivery Room Air 10/27/23 04:00 Medical Decision Making MDM Narrative Medical decision making narrative: differential diagnosis includes intra-abdominal infection, ureterolithiasis, UTI, pyelonephritis laboratory studies were obtained on the patient show normal CBC electrolytes are within normal limits. CT scan of the abdomen pelvis showed a 2 mm stone in the bladder the patient is feeling much better at this time Vital Signs Vital Signs: Vital Signs Temperature 37.1 C 10/27/23 04:00 Pulse Rate 87 10/27/23 04:00 Respiratory Rate 18 10/27/23 04:00 Blood Pressure 111/83 10/27/23 04:00 Pulse Oximetry 99 10/27/23 04:00 Oxygen Delivery Room Air 10/27/23 04:00 Temperature 37.1 C 10/27/23 04:00 Pulse Rate 64 10/27/23 06:46 Respiratory Rate 16 10/27/23 06:46 Blood Pressure 133/65 10/27/23 06:46 Pulse Oximetry 98 10/27/23 06:46 Oxygen Delivery Room Air 10/27/23 04:00 Lab Data 10/27/23 04:27 10/27/23 04:27 Labs:
[2023-10-27 06:38] LABS: Appearance Urine Clear (Clear); Bacteria Urine None Seen /hpf; Bilirubin Urine Negative (Negative); Blood Urine 3+ (Negative); Color Urine Yellow (Yellow); Glucose Urine UA Negative (Negative); Ketones Urine 3+ mg/dL (Negative); Leukocyte Esterase Ur Negative LEU/UL (Negative); Nitrate Urine Negative (Negative); Non Pathogenic Casts 0-2; Protein Urine Trace mg/dL (Negative); RBC Urine >100 /hpf (0-2); Specific Grav Ur 1.034 (1.001-1.035); Squamous Epithelial Cell Urine None seen /hpf (Few); Urobilinogen Urine 0.2 mg/dL (<2.0); WBC Urine 0-5 /hpf; pH Urine 5.5 (5.0-9.0)
[2023-10-27 06:52] LABS: Add Urine Microscopic? YES
== END 2023-10-27 07:09 | disposition home or self-care (01) ==
PROVIDERS: Emergency Provider Emergency Medicine; PCP Nurse Practitioner Family
DX: N20.0 Calculus of kidney (principal); Z77.22 Contact with and (suspected) exposure to environmental tobacco smoke (acute) (chronic)
CPT/HCPCS: 36415; 74176; 80053; 81001; 83690; 85025; 96361; 96374; 96375; 99284; J2270; J2405; J7030

== ENCOUNTER 2025-09-14 11:45 | Emergency (ER) | payer OTHER, SELFPAY ==
--- NOTE | ~2025-09-14 | CT_ITS ---
CT ABDOMEN AND PELVIS WITHOUT CONTRAST Clinical History: flank pain +freq; h/o stones Comparison: CT abdomen and pelvis 10/27/2023 Technique: Unenhanced axial images lung bases to symphysis pubis Coronal, sagittal reformats CT images acquired with automatic exposure control for dose reduction DLP: 211 mGy-cm Findings: Without intravenous contrast, sensitivity for detecting visceral parenchymal abnormalities decreased. Lung bases: Clear. Visualized heart and pericardium: Unremarkable. Liver: Unremarkable. Gallbladder: Unremarkable. Spleen: Unremarkable. Pancreas: Unremarkable. Adrenal glands: Unremarkable. Kidneys: Right kidney- No hydronephrosis. No renal stones. Left kidney- No hydronephrosis. No renal stones. Distal esophagus/stomach: Unremarkable. Small bowel loops: Normal caliber and wall thickness. Colon: Diverticula. Normal caliber and wall thickness. Normal RLQ appendix. Nodes: No enlarged nodes. Peritoneum: No ascites. No free intraperitoneal air. Urinary bladder: Unremarkable. Prostate: Unremarkable. Bones: No acute bony abnormality. Soft tissues: Unremarkable. Unopacified abdominal aorta: No aneurysmal dilatation. IMPRESSION: 1. No acute findings. Reviewed, dictated and finalized at location R. AIGN MANAGEMENT SPECIALIST IMPRESSION: 1. No acute findings.
[2025-09-14 11:58] VITALS: BP 122/79; PULSE 74; RESP 18; TEMP 36.6; O2SAT 100
--- OUTSIDE RECORDS SUMMARY | 2025-09-14 12:07 | XMS_ITS | Clinical Summary ---
Author Organization [facility] Address [address] [place] [address] Care Team Providers Care Corporate Staff Accountant Name Role Phone No, Pcp DIRECTOR OF EARLY CHILDHOOD Primary Care Provider Unavailabl e Social History Tobacco Use Types Packs/Day Years Used Date Smoking Tobacco: Never Assessed Sex and Gender Information Value Date Recorded Sex Assigned at Not on file Legal Sex Male 3:20 PM EST Gender Identity Not on file Sexual Orientation Not on file Plan of Treatment Not on file Medical Devices Not on file [place] [address] [place] [address] [place] [address] Care Teams Corporate Staff Accountant Relationship Specialty Start Date End Date No, Pcp, DIRECTOR OF EARLY CHILDHOOD N/A Do not use PCP - General Family Medicine 09/07/20
[2025-09-14 12:17] LABS: Hematocrit 45.0 % (42.0-52.0); Hemoglobin 15.2 g/dL (14.0-18.0); Immature Granulocyte Percent A 0.2 % (0-0.5); Lymphocytes Absolute Auto 1.34 K/mm3 (0.9-3.2); Mean Corpuscular HGB Conc 33.8 g/dl (32-36); Mean Corpuscular Hemoglobin 30.3 pg (26-34); Mean Corpuscular Volume 89.8 fl (80-100); Nucleated Red Blood Cells Absolute Auto 0.000 K/mm3 (0.0-0.012); Nucleated Red Blood Cells Perc 0.0 % (0.0-0.2); Platelet Count Result 289 k/mm3 (150-375); Red Blood Count 5.01 M/mm3 (4.6-6.20); White Blood Count 8.1 K/mm3 (4.5-10.0)
[2025-09-14 12:18] LABS: Add Urine Microscopic? NO; Appearance Urine Clear (Clear); Glucose Urine UA Negative (Negative); Leukocyte Esterase Ur Negative LEU/UL (Negative); Nitrate Urine Negative (Negative); Specific Grav Ur 1.009 (1.001-1.035)
--- NOTE | 2025-09-14 12:24 | PC.NURSE ---
pt to CT at this time
[2025-09-14 12:26] LABS: Alanine Aminotransferase 16 U/L (6-50); Albumin Level 4.8 g/dL (3.5-5.1); Alkaline Phosphatase 52 U/L (38-126); Anion Gap 6 mmol/L (4-12); Aspartate Amino Transferase 22 U/L (17-59); Bilirubin,Total 0.7 mg/dL (0.2-1.3); Blood Urea Nitrogen 15 mg/dL (9-20); Calcium 9.8 mg/dL (8.4-10.2); Carbon Dioxide 33 mmol/L (22-30); Chloride 100 mmol/L (98-107); Estimated CRCL calculation 91 ml/min; Estimated Glomerular Filt Rate > 60; Glucose 100 mg/dL (65-110); Potassium 4.1 mmol/L (3.4-5.0); Sodium 139 mmol/L (137-145); Total Protein 8.1 g/dL (6.3-8.2)
[2025-09-14 13:20] VITALS: BP 131/80; PULSE 74; RESP 16; TEMP 36.5; O2SAT 98
--- NOTE | 2025-09-14 15:24 | ED_ITS ---
HPI - Male Genitourinary General Chief complaint: Urogenital-Male Stated complaint: FRIQUIENT URINATION, R SIDE FLANK PAIN Time Seen by Provider: 09/14/25 12:01 History of Present Illness HPI Narrative: Patient has felt like he was using the bathroom more often than usual and has had some slight pain to the right flank, history of kidney stones but this does not feels painful, he also has no nausea or vomiting, this has been ongoing for most of the day. Related Data Allergies Allergy/AdvReac Type Severity Reaction Status Date / Time No Known Allergies Allergy Mild Verified 09/14/25 11:47 Review of Systems 2 Review of Systems: All systems reviewed & are unremarkable except as noted in HPI and below PMFSH Past Medical History Medical History (Updated 09/14/25 @ 13:11 by Jodee Mathis MD) Healthy adult male Surgical History Surgical History ) No history of previous surgery Family History Family History ) Mother Diabetes mellitus Social History Social History ) Social History: 05/27/25 very confident with medical forms 06/24/25 Patient declined SDOH Smoking status: Never smoker Second hand tobacco smoke exposure: Yes Alcohol intake: never Substance use: former Substance use type: marijuana Lack of Transportation: No Lack of Food: Never True Current Housing: I Have Housing Concerned About Future Housing: No Difficulty Paying Gas/Electric Bills: No Difficulty Paying for Meds: No Currently Unemployed: No Education: High School Diploma/GED Difficulty w/ Childcare or Family Care: No Living arrangements: with family Occupation/Education: occupation Gender identity (if verbalized by the patient): Male Spiritual care concerns: No Agree to blood products: Yes Exam 2 Narrative: EXAMINATION OF ORGAN SYSTEMS/BODY AREAS: Constitutional: Vital signs per nursing GENERAL:No acute distress, non-toxic appearing. HEAD: Normal with no signs of head trauma. EYES: EOMI, conjunctiva normal ENT: Hearing grossly intact LUNGS: Nonlabored breathing. HEART: Regular rate and rhythm ABD: Soft, nontender to palpation; no significant flank tenderness EXT: Normal range of motion SKIN: No rashes or lesions. NEURO: Alert. No gross focal sensory or strength deficits. PSYCH: Normal affect Course Vital Signs Vital signs: Vital Signs Temperature 98 F 09/14/25 11:58 Pulse Rate 74 09/14/25 11:58 Respiratory Rate 18 09/14/25 11:58 Blood Pressure 122/79 09/14/25 11:58 Pulse Oximetry 100 09/14/25 11:58 Oxygen Delivery Room Air 09/14/25 11:58 Temperature 97.7 F 09/14/25 13:20 Pulse Rate 74 09/14/25 13:20 Respiratory Rate 16 09/14/25 13:20 Blood Pressure 131/80 09/14/25 13:20 Pulse Oximetry 98 09/14/25 13:20 Oxygen Delivery Room Air 09/14/25 11:58 MDM MDM Narrative Medical decision making narrative: Patient here with R flank pain, h/o kidney stones but this is not as intense. No n/v, he is very well-appearing here, declined pain medicine. Labs normal, urine normal, CT abdomen/pelvis without acute abnormality. Stable for discharge follow-up to PCP return precautions Differential Diagnosis Differential Diagnosis: Kidney stone, MSK, etc Lab Data 09/14/25 12:09 09/14/25 12:09 Labs: Lab Results 09/14/25 Range/Units 12:09 WBC 8.1 (4.5-10.0) K/mm3 RBC 5.01 (4.6-6.20) M/mm3 Hgb 15.2 (14.0-18.0) g/dL Hct 45.0 (42.0-52.0) % MCV 89.8 (80-100) fl MCH 30.3 (26-34) pg MCHC 33.8 (32-36) g/dl RDW 11.9 (11.5-14.5) % Plt Count 289 (150-375) k/mm3 MPV 9.3 (7.4-10.4) fl Immature Gran % (Auto) 0.2 (0-0.5) % Neut % (Auto) 71.3 (45.5-73.1) % Lymph % (Auto) 16.5 L (18.3-44.2) % [place] % (Auto) 10.5 H (2.6-8.5) % Eos % (Auto) 1.1 (0-4.4) % Baso % (Auto) 0.4 (0.2-1.2) % Lymph # (Auto) 1.34 (0.9-3.2) K/mm3 [place] # (Auto) 0.9 H (0.1-0.6) K/mm3 Eos # (Auto) 0.1 (0-0.3) K/mm3 Baso # (Auto) 0.0 (0.0-0.1) K/mm3 Abs Immat Gran (auto) 0.02 (0.00-0.031) K/mm3 Absolute Neuts (auto) 5.8 (1.3-6.7) K/mm3 Absolute Nucleated RBC 0.000 (0.0-0.012) K/mm3 Nucleated RBC % 0.0 (0.0-0.2) % Sodium 139 (137-145) mmol/L Potassium 4.1 (3.4-5.0) mmol/L Chloride 100 (98-107) mmol/L Carbon Dioxide 33 H (22-30) mmol/L Anion Gap 6 (4-12) mmol/L BUN 15 (9-20) mg/dL Creatinine 1.14 (0.7-1.3) mg/dL Estim Creat Clear Calc 91 ml/min Estimated GFR > 60 (59 - ) Glucose 100 (65-110) mg/dL Calcium 9.8 (8.4-10.2) mg/dL Total Bilirubin 0.7 (0.2-1.3) mg/dL AST 22 (17-59) U/L ALT 16 (6-50) U/L Alkaline Phosphatase 52 (38-126) U/L Total Protein 8.1 (6.3-8.2) g/dL Albumin 4.8 (3.5-5.1) g/dL Urine Color Yellow (Yellow) Urine Appearance Clear (Clear) Urine pH 6.5 (5.0-9.0) Ur Specific [place] 1.009 (1.001-1.035) Urine Protein Negative (Negative) mg/dL Urine Glucose (UA) Negative (Negative) mg/dL Urine Ketones Negative (Negative) mg/dL Ur Blood (Man) Negative (Negative) Urine Nitrate Negative (Negative) Urine Bilirubin Negative (Negative) Urine Urobilinogen 0.2 (<2.0) mg/dL Leukocyte Esterase Rfl Negative (Negative) ERUM/UL Imaging Data Radiologist's impression: ITS Impressions Abdomen/Pelvis CT 09/14/25 12:33 IMPRESSION: 1. No acute findings. Discharge Plan Discharge Clinical Impression: Flank pain Patient Disposition: Home Condition: Stable Instructions: Flank Pain (ED) Additional Instructions: Your labs and CT scan today thankfully are normal. Please follow-up with your doctor and you can always return to the ER if your symptoms return or worsen. Patient Language: Lebanese Prescriptions: No Action lisdexamfetamine [Vyvanse] 10 mg capsule 10 mg PO DAILY Qty: 90 0RF Follow-up/Referrals: Marylou Nazario APRN [Primary Care Provider, Family Practice]
== END 2025-09-14 13:22 | disposition home or self-care (01) ==
PROVIDERS: Emergency Provider Emergency Medicine; PCP Nurse Practitioner Family
DX: R10.A1 Flank pain, right side (principal); Z87.442 Personal history of urinary calculi; Z77.22 Contact with and (suspected) exposure to environmental tobacco smoke (acute) (chronic)
CPT/HCPCS: 36415; 74176; 80053; 81003; 85025; 99284